=== PATIENT | female | born 1990 | race Caucasian/White ===

== ENCOUNTER 2017-03-15 17:56 | Emergency (ER) | payer SELFPAY ==
[2017-03-15 19:53] VITALS: BP 128/90
== END 2017-03-15 20:01 | disposition home or self-care (01) ==
LOC: ED 17:56
DX: K29.70 Gastritis, unspecified, without bleeding (principal); N91.1 Secondary amenorrhea; R03.0 Elevated blood-pressure reading, without diagnosis of hypertension; Z88.0 Allergy status to penicillin

== ENCOUNTER 2019-02-27 18:47 | Emergency (ER) | payer OTHER ==
[~2019-02-27] VITALS: Ht 162.6 cm; Wt 66.7 kg
[2019-02-27 19:00] VITALS: Ht 162.6 cm; Wt 66.7 kg
[2019-02-27 20:49] VITALS: BP 125/77
== END 2019-02-27 20:49 | disposition home or self-care (01) ==
LOC: ED 18:47
DX: L02.416 Cutaneous abscess of left lower limb (principal); Z88.0 Allergy status to penicillin; W57.XXXA Bitten or stung by nonvenomous insect and other nonvenomous arthropods, initial encounter; Y93.89 Activity, other specified; Y92.89 Other specified places as the place of occurrence of the external cause; Y99.8 Other external cause status

== ENCOUNTER 2019-03-01 17:49 | Emergency (ER) | payer OTHER ==
[~2019-03-01] VITALS: Ht 162.6 cm; Wt 65.8 kg
[2019-03-01 18:13] VITALS: Ht 162.6 cm; Wt 65.8 kg
[2019-03-01 20:10] VITALS: BP 114/76
== END 2019-03-01 20:10 | disposition home or self-care (01) ==
LOC: ED 17:49
DX: L02.416 Cutaneous abscess of left lower limb (principal); Z88.0 Allergy status to penicillin